=== PATIENT | female | born 1995 | race Caucasian/White ===

== ENCOUNTER 2017-02-09 13:48 | Day surgery (SDC) | payer BC ==
--- NOTE | ~2017-02-09 | OP ---
Record Of Operation [facility] [address] [place]. [address] NAME: ANA LAURA ROGERS : [birth year] STATUS : [facility]#: [id number] AGE: 21 ADM/REG DATE : 02/09/17 MR#: [id number] REPORT SERV DATE: 02/09/17 DICTATED BY: BRYAN PIERRE DATE: 02/09/17 REPORT STATUS : Draft TRANSCRIBED BY: MODRobert DATE: 02/09/17 DATE OF PROCEDURE: PREOPERATIVE DIAGNOSES: Right wrist pain. POSTOPERATIVE DIAGNOSES: Right wrist pain and right wrist dorsal synovitis. PROCEDURE: Right wrist arthroscopy with joint debridement. SURGEON: Bryan Pierre M.D. ANESTHESIA: General. COMPLICATIONS: None. BLOOD LOSS: Minimal. INDICATIONS: Ms. Rogers is a 21-year-old female, follow up in my office with the above diagnoses given the unrelenting nature of her pain despite conservative measures and chronicity. She wished to proceed with arthroscopy in diagnostic and potentially therapeutic fashion. The risks and benefits were discussed. DESCRIPTION OF PROCEDURE: The patient was identified in the preoperative area. Informed consent was performed and documented. Surgical site was signed. She was taken back to the operative suite, placed on the table in supine position. General anesthesia was administered. Right hand was prepped and draped in a sterile fashion. Time-out was performed and documented. Antibiotics were given at room time. I marked out the anticipated incision. Placed her arm in the wrist traction tower approximately 10 to 12 pounds traction, marked out anticipated incision. I instilled the joint with normal saline via a 25-gauge needle through the 3-4 portal. I then, Exsanguinated the arm and raised tourniquet to 250 mmHg. Made a superficial incision at the 3-4 site, spread with curved scissors followed by a blunt hemostatic and access to the joint and inserted the blunt trocar. Established a working portal in the 4-5 spot using outside in technique, localization with a 25-gauge needle, an outflow of portal on the ulnar aspect to the 18- gauge needle. On inspection, the cartilage was benign, the radius and the ulna as with the TFCC. Trampoline test was normal. There were no tears. There was no instability. The volar radiocarpal ligaments were also benign. Scapholunate ligament was benign. Scaphoid and lunate cartilage was also benign. There was synovitis radially and dorsally extending across the wrist and some thickened capsular tissue. The shaver was inserted and this was debrided back on the radial and ulnar aspects, and this was done again, repositioned the scope to the 4-5 portal again after our debridement. Once again, TFCC was found to be stable. Then turned attention to the carpal space, I made a metacarpal incision in similar manner and it was essentially benign with normal space in between the scapholunate and lunotriquetral intervals and capitate was also benign. There was no significant synovitis. Then removed the instruments after obtaining final images. Closed the portal and instilled 0.5% Marcaine plain plus sterile dressing short-arm splint. The patient tolerated the Record Of Operation [facility] [address] [place]. [address] NAME: ANA LAURA ROGERS : [birth year] STATUS : [facility] PAT#: [id number] AGE: 21 ADM/REG DATE : 02/09/17 MR#: [id number] REPORT SERV DATE: 02/09/17 DICTATED BY: BRYAN PIERRE DATE: 02/09/17 REPORT STATUS : Draft TRANSCRIBED BY: PRUDENCE DATE: 02/09/17 procedure well and was taken to her room in stable condition. DISCHARGE CONDITION: Satisfactory. DISCHARGE INSTRUCTIONS: The patient was given narcotic analgesics for pain and printed instructions regarding care of dressing and followup appointment. We will see her back in 10 to 14 days, at which time, we will remove the sutures, work on range of motion with interval splint wear and review the operative findings. KAREEM/PRUDENCE Bryan Pierre M.D. / [id number] CC: Nandini Encarnacion
[~2017-02-09 13:48] MED LIST: ADVIL PO; HARD NAILS PO; METADATE CD50 MG PO; PRENATAL VITAMIN; PRISTIQ50 MG PO
[2017-04-14] MEDS ORDERED: TRINTELLIX20 MG PO (00:37)
[2017-04-23] MEDS ORDERED: LEVAQUIN750 MG PO (10:09)
[2017-04-23] MEDS ORDERED: NYS500UDL PO (10:10)
[2017-04-23] MEDS ORDERED: MIRALAX POWDER1 PKT PO (10:11)
[2017-04-23] MEDS ORDERED: FLAG500TAB PO (10:13)
[2017-04-23] MEDS ORDERED: ZOFRAN4 PO (10:15)
[2017-04-23] MEDS ORDERED: PCET PO (10:16)
[2017-04-23] MEDS ORDERED: MYTAB GAS80 MG PO (10:17)
[2017-04-23] MEDS ORDERED: PROTONIX PO (10:19)
[2017-04-23] MEDS ORDERED: PR25 PO (10:21)
== END 2017-02-09 20:01 | disposition home or self-care (01) ==
LOC: SDC 13:48
PROVIDERS: Surgery Surgery of the Hand
PROC: 0RBN4ZZ Excision of Right Wrist Joint, Percutaneous Endoscopic Approach (ICD-10-PCS; principal; 2017-02-09 14:45)
DX: M65.88 Other synovitis and tenosynovitis, other site (principal); F98.8 Other specified behavioral and emotional disorders with onset usually occurring in childhood and adolescence; J45.909 Unspecified asthma, uncomplicated; F32.9 Major depressive disorder, single episode, unspecified; F41.9 Anxiety disorder, unspecified; Z98.890 Other specified postprocedural states
CPT/HCPCS: 84703; J0690; J1170; J2175; J2250; J2405; J2550; J3010